=== PATIENT | male | born 1970 | race Caucasian/White ===

== ENCOUNTER 2016-08-18 15:37 | Inpatient (IN) | payer MEDICAID ==
[~2016-08-18] VITALS: Ht 182.9 cm; Wt 145.4 kg
[2016-08-18] MEDS ORDERED: PREG50CA PO (15:47)
[2016-08-18] MEDS ORDERED: LOSA50TA2 PO (15:47)
[2016-08-18] MEDS ORDERED: PRED10TA PO (15:47)
[2016-08-18] MEDS ORDERED: OXYC-229 PO (15:47)
[2016-08-18] MEDS ORDERED: HYDR25CA PO (15:47)
[2016-08-18] MEDS ORDERED: ONDANSETRON 2MG/ML, 2ML IVPush ONE (16:30)
[2016-08-18] MEDS ORDERED: ONDANSETRON 2MG/ML, 2ML ONE (16:43)
[2016-08-18] MEDS ORDERED: MORPHINE SULFATE 4 MG/ML, 1ML ONE ×2 (16:43→17:46)
[2016-08-18] MEDS: MORPHINE SULFATE 4 MG/ML, 1ML IVPush PRN ×3 (16:47→21:04)
[2016-08-18] MEDS ORDERED: SULFAMETH./TRIMETHOPRIM DS 800MG/160MG TABLET PO ONE (17:30)
[2016-08-18] MEDS ORDERED: SULFAMETH./TRIMETHOPRIM DS 800MG/160MG TABLET ONE (17:46)
[2016-08-18] MEDS ORDERED: ACETAMINOPHEN 325 MG TABLET PO PRN (18:00)
[2016-08-18] MEDS ORDERED: POLYETHYLENE GLYCOL 17 GM PACKET PO PRN (18:00)
[2016-08-18] MEDS ORDERED: BISACODYL 10 MG SUPP PR PRN (18:00)
[2016-08-18] MEDS ORDERED: ONDANSETRON 2MG/ML, 2ML IVP PRN (18:00)
[2016-08-18] MEDS ORDERED: ONDANSETRON ODT 4 MG PO PRN (18:00)
[2016-08-18] MEDS ORDERED: ENALAPRILAT 1.25 MG/ML, 2ML IVPush PRN (18:00)
[2016-08-18] MEDS ORDERED: DOCUSATE 100 MG CAPSULE PO PRN (18:00)
[2016-08-18] MEDS ORDERED: PLEASE ENTER ALLERGIES MC SCH ×2 (19:00)
[2016-08-18] MEDS ORDERED: morphine SULFATE 10 MG/ML, 1ML ONE (19:02)
[2016-08-18] MEDS ORDERED: BUPIVACAINE/PF-EPI 0.5% 1:200K ONE (19:02)
[2016-08-18 22:41] VITALS: BP 144/91
[2016-08-18] MEDS: ENOXAPARIN 40 MG/0.4 ML SQ SCH (23:13)
[2016-08-18] MEDS: NICOTINE 21 MG/24 HR PATCH.TD24 TD SCH (23:13)
[2016-08-18 23:15] VITALS: BP 144/91
[2016-08-19] MEDS: MORPHINE SULFATE 4 MG/ML, 1ML IVPush PRN ×5 (00:19→21:03)
[2016-08-19 00:28] VITALS: BP 106/68
[2016-08-19] MEDS: OXYcodone/APAP 10/325MG TABLET PO PRN ×4 (02:54→18:55)
[2016-08-19 05:37] LABS: HEMOGLOBIN 13.3 g/dL (13.7-18.0)
[2016-08-19 05:49] LABS: BLOOD UREA NITROGEN 22 mg/dL (7-18)
[2016-08-19 05:53] LABS: ASPARTATE AMINO TRANSFERASE 11 U/L (15-37)
[2016-08-19 06:08] LABS: HIV 1&2 ANTIBODY SCREEN Nonreactive (Nonreactive); HIV-1 p24 ANTIGEN Nonreactive (Nonreactive)
[2016-08-19 08:04] VITALS: BP 147/87
[2016-08-19] MEDS ORDERED: GADOBUTROL 10 MMOL/10 ML PFS ONE (09:19)
[2016-08-19] MEDS: LOSARTAN 50MG TABLET PO SCH (10:25)
[2016-08-19 10:31] LABS: HEPATITIS C VIRUS ANTIBODY Nonreactive (Nonreactive)
[2016-08-19] MEDS ORDERED: methylPREDNISolone SOD SUCC 125 MG/2 ML IVPush SCH (11:30)
[2016-08-19 12:52] VITALS: BP 114/64
[2016-08-19] MEDS: NICOTINE 21 MG/24 HR PATCH.TD24 TD SCH (17:10)
[2016-08-19] MEDS: ENOXAPARIN 40 MG/0.4 ML SQ SCH (17:11)
[2016-08-19 19:16] VITALS: BP 153/86
[2016-08-19 20:23] LABS: DAU SCREEN DISCLAIMER
[2016-08-20 01:02] VITALS: BP 142/73
[2016-08-20] MEDS: OXYcodone/APAP 10/325MG TABLET PO PRN ×4 (02:48→23:23)
[2016-08-20] MEDS: MORPHINE SULFATE 4 MG/ML, 1ML IVPush PRN ×4 (03:45→19:48)
[2016-08-20 05:51] LABS: BLOOD UREA NITROGEN 16 mg/dL (7-18)
[2016-08-20 06:50] VITALS: BP 162/84
[2016-08-20] MEDS: LOSARTAN 50MG TABLET PO SCH (09:06)
[2016-08-20] MEDS: OXYcodone IR 5MG TABLET PO PRN ×2 (11:39→18:19)
[2016-08-20] MEDS: ENOXAPARIN 40 MG/0.4 ML SQ SCH (12:36)
[2016-08-20 13:51] VITALS: BP 148/82
[2016-08-20] MEDS: FUROSEMIDE 20 MG TABLET PO SCH (14:27)
[2016-08-20] MEDS: ERGOCALCIFEROL 50,000 UNIT CAPSULE PO SCH (14:27)
[2016-08-20] MEDS: NICOTINE 21 MG/24 HR PATCH.TD24 TD SCH (17:36)
[2016-08-20 19:15] VITALS: BP 155/79
[2016-08-21] MEDS: MORPHINE SULFATE 4 MG/ML, 1ML IVPush PRN ×5 (00:01→18:38)
[2016-08-21] MEDS: OXYcodone IR 5MG TABLET PO PRN ×3 (00:01→16:02)
[2016-08-21 02:28] VITALS: BP 144/88
[2016-08-21 06:08] LABS: HEMOGLOBIN 14.4 g/dL (13.7-18.0)
[2016-08-21 06:18] LABS: BLOOD UREA NITROGEN 23 mg/dL (7-18)
[2016-08-21 06:21] LABS: DIFF TOTAL CELLS COUNTED 100 CELL DIFF
[2016-08-21 06:22] LABS: VERIFY COUNTS? YES
[2016-08-21 06:56] VITALS: BP 135/83
[2016-08-21] MEDS: FUROSEMIDE 20 MG TABLET PO SCH (08:24)
[2016-08-21] MEDS: LOSARTAN 50MG TABLET PO SCH (08:25)
[2016-08-21] MEDS: OXYcodone/APAP 10/325MG TABLET PO PRN ×2 (11:05→20:50)
[2016-08-21] MEDS ORDERED: MIDAZOLAM 1 MG/ML, 5ML ONE (13:19)
[2016-08-21] MEDS ORDERED: FENTANYL PF 100 MCG/2ML ONE (13:19)
[2016-08-21] MEDS ORDERED: FLUMAZENIL 0.1 MG/1 ML, 5ML ONE (13:19)
[2016-08-21] MEDS ORDERED: NALOXONE 1 MG/ML, 2ML ONE (13:19)
[2016-08-21 14:30] VITALS: BP 133/81
[2016-08-21] MEDS: NICOTINE 21 MG/24 HR PATCH.TD24 TD SCH (18:00)
[2016-08-21] MEDS: ENOXAPARIN 40 MG/0.4 ML SQ SCH (18:00)
[2016-08-21 20:08] VITALS: BP 135/78
[2016-08-22] MEDS: MORPHINE SULFATE 4 MG/ML, 1ML IVPush PRN ×4 (00:14→10:47)
[2016-08-22 02:20] VITALS: BP 148/88
[2016-08-22] MEDS: OXYcodone/APAP 10/325MG TABLET PO PRN ×2 (02:39→09:35)
[2016-08-22] MEDS: OXYcodone IR 5MG TABLET PO PRN ×3 (03:42→20:10)
[2016-08-22 07:43] VITALS: BP 145/90
[2016-08-22] MEDS: LOSARTAN 50MG TABLET PO SCH (09:35)
[2016-08-22] MEDS: FUROSEMIDE 20 MG TABLET PO SCH (09:35)
[2016-08-22 11:06] LABS: COMPLEMENT C3 183 mg/dL (82-167); COMPLEMENT C4 34 mg/dL (14-44); COMPLEMENT TOTAL (CH50) >60 U/mL (42-60)
[2016-08-22 13:06] LABS: A/G RATIO 0.9 (0.7-1.7); ALBUMIN 2.6 g/dL (2.9-4.4); ALPHA-1-GLOBULIN 0.2 g/dL (0.0-0.4); GAMMA GLOBULIN 0.7 g/dL (0.4-1.8); PROTEIN TOTAL 5.5 g/dL (6.0-8.5)
[2016-08-22 13:06] LABS: BETA-2 GLYCOPROTEIN I IGA <9 (0-25)
[2016-08-22 13:24] VITALS: BP 149/93
[2016-08-22] MEDS: GABAPENTIN 300 MG CAPSULE PO SCH (13:31)
[2016-08-22] MEDS ORDERED: MORPHINE SULFATE 4 MG/ML, 1ML ONE (13:53)
[2016-08-22] MEDS: morphine SULFATE 10 MG/ML, 1ML IVPush PRN ×3 (13:56→22:04)
[2016-08-22 14:07] LABS: PROTEINASE 3 (PR-3) AB <3.5 U/mL (0.0-3.5)
[2016-08-22 14:07] LABS: UR ALBUMIN 70.2 % (.); UR ALPHA-1-GLOBULIN 9.1 % (.); UR ALPHA-2-GLOBULIN 4.9 % (.); UR BETA GLOBULIN 9.9 % (.); UR GAMMA GLOBULIN 5.9 % (.); UR M-SPIKE % Not Observed % (Not Observed)
[2016-08-22] MEDS ORDERED: OXYcodone IR 5MG TABLET ONE (15:36)
[2016-08-22] MEDS ORDERED: OXYcodone IR 5MG TABLET PO PRN (17:00)
[2016-08-22] MEDS: NICOTINE 21 MG/24 HR PATCH.TD24 TD SCH (17:34)
[2016-08-22] MEDS: ENOXAPARIN 40 MG/0.4 ML SQ SCH (17:34)
[2016-08-22 18:20] LABS: ANA SCREEN NEGATIVE (Negative)
[2016-08-22 21:21] VITALS: BP 149/89
[2016-08-23] MEDS: OXYcodone IR 5MG TABLET PO PRN ×6 (00:14→21:35)
[2016-08-23 01:47] VITALS: BP 152/92
[2016-08-23] MEDS: morphine SULFATE 10 MG/ML, 1ML IVPush PRN ×6 (02:12→23:37)
[2016-08-23 06:32] LABS: HEMOGLOBIN 14.3 g/dL (13.7-18.0)
[2016-08-23 06:47] LABS: BLOOD UREA NITROGEN 22 mg/dL (7-18)
[2016-08-23 07:16] VITALS: BP 152/96
[2016-08-23] MEDS: GABAPENTIN 300 MG CAPSULE PO SCH (09:03)
[2016-08-23] MEDS: LOSARTAN 50MG TABLET PO SCH ×2 (09:04→17:36)
[2016-08-23 09:07] LABS: ANA DIRECT Negative (Negative); COMPLEMENT C3 222 mg/dL (82-167); COMPLEMENT C4 38 mg/dL (14-44); INTERMYOFIBRILLAR AB Negative (Neg:<1:20); MITOCHONDRIAL (M2) AB 52.6 Units (0.0-20.0); PARIETAL CELL AB 2.1 Units (0.0-20.0); RA LATEX TURBIDITY 11.6 IU/mL (0.0-13.9); SARCOLEMMA AB Negative (Neg:<1:20); SJOGREN'S SS-A AB <0.2 AI (0.0-0.9); STRIATION AB Negative (Neg:<1:40); THYROID PEROXIDASE (TPO) AB 15 IU/mL (0-34)
[2016-08-23] MEDS: FUROSEMIDE 20 MG TABLET PO SCH (09:09)
[2016-08-23] MEDS: FUROSEMIDE 20 MG/2 ML IV SCH (13:00)
[2016-08-23 13:22] VITALS: BP 153/79
[2016-08-23] MEDS: NICOTINE 21 MG/24 HR PATCH.TD24 TD SCH (17:37)
[2016-08-23] MEDS: ENOXAPARIN 40 MG/0.4 ML SQ SCH (17:37)
[2016-08-23 19:54] VITALS: BP 136/78
[2016-08-24 01:19] VITALS: BP 161/101
[2016-08-24] MEDS: OXYcodone IR 5MG TABLET PO PRN ×6 (01:29→22:06)
[2016-08-24] MEDS: morphine SULFATE 10 MG/ML, 1ML IVPush PRN ×7 (03:39→23:31)
[2016-08-24] MEDS: GABAPENTIN 300 MG CAPSULE PO SCH (07:38)
[2016-08-24] MEDS: FUROSEMIDE 20 MG/2 ML IV SCH (07:38)
[2016-08-24] MEDS: LOSARTAN 50MG TABLET PO SCH ×2 (07:38→17:46)
[2016-08-24 08:35] VITALS: BP 153/75
[2016-08-24 13:30] VITALS: BP 122/74
[2016-08-24] MEDS: ENOXAPARIN 40 MG/0.4 ML SQ SCH (17:46)
[2016-08-24] MEDS: NICOTINE 21 MG/24 HR PATCH.TD24 TD SCH (17:46)
[2016-08-24 20:55] VITALS: BP 143/90
[2016-08-25] MEDS: OXYcodone IR 5MG TABLET PO PRN ×6 (02:07→22:01)
[2016-08-25 02:41] VITALS: BP 165/107
[2016-08-25] MEDS: morphine SULFATE 10 MG/ML, 1ML IVPush PRN ×3 (03:31→12:05)
[2016-08-25 06:39] LABS: HEMOGLOBIN 15.4 g/dL (13.7-18.0)
[2016-08-25 06:48] LABS: BLOOD UREA NITROGEN 23 mg/dL (7-18)
[2016-08-25 06:57] VITALS: BP 125/71
[2016-08-25] MEDS: FUROSEMIDE 20 MG/2 ML IV SCH (08:11)
[2016-08-25] MEDS: LOSARTAN 50MG TABLET PO SCH ×2 (08:11→18:34)
[2016-08-25] MEDS: GABAPENTIN 300 MG CAPSULE PO SCH (08:11)
[2016-08-25 08:42] LABS: DIFF TOTAL CELLS COUNTED 100 CELL DIFF
[2016-08-25 08:45] LABS: VERIFY COUNTS? YES
[2016-08-25 13:12] VITALS: BP 148/88
[2016-08-25] MEDS: OxyconTIN ER 10 MG TAB.ER PO SCH (13:34)
[2016-08-25] MEDS: NICOTINE 21 MG/24 HR PATCH.TD24 TD SCH (18:00)
[2016-08-25] MEDS: ENOXAPARIN 40 MG/0.4 ML SQ SCH (18:34)
[2016-08-25 19:50] VITALS: BP 132/84
[2016-08-26] MEDS: OxyconTIN ER 10 MG TAB.ER PO SCH ×2 (01:09→13:18)
[2016-08-26] MEDS: OXYcodone IR 5MG TABLET PO PRN ×6 (01:46→21:23)
[2016-08-26 04:35] VITALS: BP 127/75
[2016-08-26 08:19] VITALS: BP 143/82
[2016-08-26] MEDS: FUROSEMIDE 20 MG/2 ML IV SCH (09:00)
[2016-08-26] MEDS: LOSARTAN 50MG TABLET PO SCH ×2 (09:13→17:23)
[2016-08-26] MEDS: GABAPENTIN 300 MG CAPSULE PO SCH (09:14)
[2016-08-26] MEDS: FUROSEMIDE 40 MG TABLET PO SCH (10:09)
[2016-08-26 12:55] VITALS: BP 138/85
[2016-08-26] MEDS: ENOXAPARIN 40 MG/0.4 ML SQ SCH (17:23)
[2016-08-26] MEDS: NICOTINE 21 MG/24 HR PATCH.TD24 TD SCH (17:25)
[2016-08-26 18:46] VITALS: BP 127/79
[2016-08-27] MEDS: OxyconTIN ER 10 MG TAB.ER PO SCH ×2 (01:21→12:55)
[2016-08-27] MEDS: OXYcodone IR 5MG TABLET PO PRN ×6 (01:21→22:14)
[2016-08-27 05:22] LABS: HEMOGLOBIN 15.7 g/dL (13.7-18.0)
[2016-08-27 05:23] VITALS: BP 135/81
[2016-08-27 05:31] LABS: ASPARTATE AMINO TRANSFERASE 19 U/L (15-37); BLOOD UREA NITROGEN 27 mg/dL (7-18); TOTAL IRON BINDING CAPACITY 291 mcg/dL (250-450)
[2016-08-27 05:56] LABS: DIFF TOTAL CELLS COUNTED 100 CELL DIFF
[2016-08-27 06:03] LABS: VERIFY COUNTS? YES
[2016-08-27 07:19] VITALS: BP 131/83
[2016-08-27] MEDS: LOSARTAN 50MG TABLET PO SCH ×2 (08:28→17:13)
[2016-08-27] MEDS: GABAPENTIN 300 MG CAPSULE PO SCH (08:28)
[2016-08-27] MEDS: FUROSEMIDE 40 MG TABLET PO SCH (08:28)
[2016-08-27] MEDS: ERGOCALCIFEROL 50,000 UNIT CAPSULE PO SCH (11:16)
[2016-08-27 14:09] VITALS: BP 115/72
[2016-08-27] MEDS: NICOTINE 21 MG/24 HR PATCH.TD24 TD SCH (17:13)
[2016-08-27] MEDS: ENOXAPARIN 40 MG/0.4 ML SQ SCH (17:18)
[2016-08-27 20:17] VITALS: BP 153/85
[2016-08-28] MEDS: OxyconTIN ER 10 MG TAB.ER PO SCH ×2 (00:50→13:04)
[2016-08-28] MEDS: OXYcodone IR 5MG TABLET PO PRN ×6 (02:02→23:25)
[2016-08-28 03:11] VITALS: BP 137/79
[2016-08-28 06:15] LABS: HEMOGLOBIN 15.5 g/dL (13.7-18.0)
[2016-08-28 06:57] LABS: ASPARTATE AMINO TRANSFERASE 14 U/L (15-37); BLOOD UREA NITROGEN 26 mg/dL (7-18)
[2016-08-28 07:00] LABS: DIFF TOTAL CELLS COUNTED 100 CELL DIFF
[2016-08-28 07:02] LABS: ANISOCYTOSIS 1+; VERIFY COUNTS? YES
[2016-08-28 08:33] VITALS: BP 144/87
[2016-08-28] MEDS: FUROSEMIDE 40 MG TABLET PO SCH ×2 (09:01→21:14)
[2016-08-28] MEDS: LOSARTAN 50MG TABLET PO SCH ×2 (09:01→17:57)
[2016-08-28] MEDS: GABAPENTIN 300 MG CAPSULE PO SCH (09:01)
[2016-08-28 13:31] VITALS: BP 135/72
[2016-08-28] MEDS: ENOXAPARIN 40 MG/0.4 ML SQ SCH (17:57)
[2016-08-28] MEDS: NICOTINE 21 MG/24 HR PATCH.TD24 TD SCH (17:58)
[2016-08-28 19:53] VITALS: BP 132/78
[2016-08-29] MEDS: OxyconTIN ER 10 MG TAB.ER PO SCH ×2 (00:53→12:54)
[2016-08-29 02:13] VITALS: BP 132/84
[2016-08-29] MEDS: OXYcodone IR 5MG TABLET PO PRN ×6 (03:13→23:32)
[2016-08-29 05:11] LABS: HEMOGLOBIN 14.8 g/dL (13.7-18.0)
[2016-08-29 05:29] LABS: BLOOD UREA NITROGEN 27 mg/dL (7-18)
[2016-08-29 05:45] LABS: DIFF TOTAL CELLS COUNTED 100 CELL DIFF
[2016-08-29 05:51] LABS: VERIFY COUNTS? YES
[2016-08-29 05:52] LABS: MONOS WITH VACUOLES 1+
[2016-08-29 08:05] VITALS: BP 128/84
[2016-08-29] MEDS: GABAPENTIN 300 MG CAPSULE PO SCH (09:57)
[2016-08-29] MEDS: FUROSEMIDE 40 MG TABLET PO SCH ×2 (09:58→19:59)
[2016-08-29] MEDS: LOSARTAN 50MG TABLET PO SCH ×2 (09:58→17:51)
[2016-08-29 14:02] VITALS: BP 131/80
[2016-08-29] MEDS: NICOTINE 21 MG/24 HR PATCH.TD24 TD SCH (17:49)
[2016-08-29] MEDS: ENOXAPARIN 40 MG/0.4 ML SQ SCH (17:52)
[2016-08-29 20:06] VITALS: BP 142/73
[2016-08-30] MEDS: OxyconTIN ER 10 MG TAB.ER PO SCH ×2 (01:04→12:47)
[2016-08-30] MEDS: OXYcodone IR 5MG TABLET PO PRN ×5 (03:47→20:00)
[2016-08-30 04:00] VITALS: BP 148/78
[2016-08-30 05:24] LABS: HEMOGLOBIN 14.4 g/dL (13.7-18.0)
[2016-08-30 05:34] LABS: BLOOD UREA NITROGEN 25 mg/dL (7-18)
[2016-08-30 06:13] LABS: DIFF TOTAL CELLS COUNTED 100 CELL DIFF
[2016-08-30 06:14] LABS: VERIFY COUNTS? YES
[2016-08-30] MEDS: GABAPENTIN 300 MG CAPSULE PO SCH (07:48)
[2016-08-30] MEDS: LOSARTAN 50MG TABLET PO SCH ×2 (07:49→17:50)
[2016-08-30] MEDS: FUROSEMIDE 40 MG TABLET PO SCH ×2 (07:49→20:01)
[2016-08-30 07:53] VITALS: BP 123/81
[2016-08-30] MEDS ORDERED: GABAPENTIN 300 MG CAPSULE PO SCH (09:00)
[2016-08-30] MEDS: GABAPENTIN 100 MG CAPSULE PO SCH ×3 (10:00→20:00)
[2016-08-30 13:41] VITALS: BP 112/72
[2016-08-30] MEDS: NICOTINE 21 MG/24 HR PATCH.TD24 TD SCH (16:55)
[2016-08-30 17:49] VITALS: BP 138/73
[2016-08-30] MEDS: ENOXAPARIN 40 MG/0.4 ML SQ SCH (17:50)
[2016-08-30 20:42] VITALS: BP 129/69
[2016-08-31] MEDS: OXYcodone IR 5MG TABLET PO PRN ×6 (00:05→21:15)
[2016-08-31] MEDS: OxyconTIN ER 10 MG TAB.ER PO SCH ×2 (00:56→13:06)
[2016-08-31 02:05] VITALS: BP 126/64
[2016-08-31 07:26] LABS: HEMOGLOBIN 13.6 g/dL (13.7-18.0)
[2016-08-31 07:38] LABS: BLOOD UREA NITROGEN 24 mg/dL (7-18)
[2016-08-31 08:02] LABS: DIFF TOTAL CELLS COUNTED 100 CELL DIFF
[2016-08-31 08:08] LABS: VERIFY COUNTS? YES
[2016-08-31 09:14] VITALS: BP 134/72
[2016-08-31] MEDS: LOSARTAN 50MG TABLET PO SCH ×2 (09:21→17:17)
[2016-08-31] MEDS: FUROSEMIDE 40 MG TABLET PO SCH ×2 (09:21→20:22)
[2016-08-31] MEDS: GABAPENTIN 100 MG CAPSULE PO SCH (09:21)
[2016-08-31 15:50] VITALS: BP 120/66
[2016-08-31] MEDS: NICOTINE 21 MG/24 HR PATCH.TD24 TD SCH (17:16)
[2016-08-31] MEDS: ENOXAPARIN 40 MG/0.4 ML SQ SCH (17:17)
[2016-08-31 18:57] VITALS: BP 121/70
[2016-09-01] MEDS: OxyconTIN ER 10 MG TAB.ER PO SCH ×2 (00:10→13:00)
[2016-09-01] MEDS: OXYcodone IR 5MG TABLET PO PRN ×6 (01:16→21:32)
[2016-09-01 01:20] VITALS: BP 138/79
[2016-09-01 05:21] LABS: HEMOGLOBIN 13.7 g/dL (13.7-18.0)
[2016-09-01 05:31] LABS: BLOOD UREA NITROGEN 26 mg/dL (7-18)
[2016-09-01 06:15] LABS: DIFF TOTAL CELLS COUNTED 100 CELL DIFF
[2016-09-01 06:16] LABS: VERIFY COUNTS? YES
[2016-09-01 07:15] VITALS: BP 123/78
[2016-09-01] MEDS: FUROSEMIDE 40 MG TABLET PO SCH ×2 (09:42→21:32)
[2016-09-01] MEDS: LOSARTAN 50MG TABLET PO SCH ×2 (09:43→17:38)
[2016-09-01 15:23] VITALS: BP 111/69
[2016-09-01] MEDS: NICOTINE 21 MG/24 HR PATCH.TD24 TD SCH (17:38)
[2016-09-01] MEDS: ENOXAPARIN 40 MG/0.4 ML SQ SCH (17:54)
[2016-09-01 18:51] VITALS: BP 144/84
[2016-09-02] MEDS: OxyconTIN ER 10 MG TAB.ER PO SCH ×2 (00:46→13:14)
[2016-09-02] MEDS: OXYcodone IR 5MG TABLET PO PRN ×6 (02:30→23:22)
[2016-09-02 02:45] VITALS: BP 121/65
[2016-09-02 06:19] LABS: HEMOGLOBIN 13.8 g/dL (13.7-18.0)
[2016-09-02 06:34] LABS: BLOOD UREA NITROGEN 25 mg/dL (7-18)
[2016-09-02 07:26] VITALS: BP 119/75
[2016-09-02] MEDS: LOSARTAN 50MG TABLET PO SCH ×2 (08:23→18:33)
[2016-09-02] MEDS: FUROSEMIDE 40 MG TABLET PO SCH ×2 (08:24→20:52)
[2016-09-02 09:10] LABS: DIFF TOTAL CELLS COUNTED 100 CELL DIFF
[2016-09-02 09:11] LABS: VERIFY COUNTS? YES
[2016-09-02 13:57] VITALS: BP 153/92
[2016-09-02] MEDS: NICOTINE 21 MG/24 HR PATCH.TD24 TD SCH (18:27)
[2016-09-02] MEDS: ENOXAPARIN 40 MG/0.4 ML SQ SCH (18:31)
[2016-09-02 18:34] VITALS: BP 155/90
[2016-09-03] MEDS: OxyconTIN ER 10 MG TAB.ER PO SCH ×2 (01:09→13:07)
[2016-09-03 01:55] VITALS: BP 162/84
[2016-09-03] MEDS: OXYcodone IR 5MG TABLET PO PRN ×5 (03:26→20:09)
[2016-09-03 07:37] VITALS: BP 130/87
[2016-09-03] MEDS: LOSARTAN 50MG TABLET PO SCH ×2 (07:40→17:33)
[2016-09-03] MEDS: ERGOCALCIFEROL 50,000 UNIT CAPSULE PO SCH (07:40)
[2016-09-03] MEDS: FUROSEMIDE 40 MG TABLET PO SCH ×2 (07:41→20:35)
[2016-09-03 13:14] VITALS: BP 136/79
[2016-09-03] MEDS: NICOTINE 21 MG/24 HR PATCH.TD24 TD SCH ×2 (17:33→17:34)
[2016-09-03] MEDS: ENOXAPARIN 40 MG/0.4 ML SQ SCH (17:34)
[2016-09-03 20:00] VITALS: BP 125/74
[2016-09-04] MEDS: OXYcodone IR 5MG TABLET PO PRN ×6 (00:08→21:26)
[2016-09-04] MEDS: OxyconTIN ER 10 MG TAB.ER PO SCH ×2 (01:24→13:19)
[2016-09-04 02:48] VITALS: BP 120/81
[2016-09-04 07:22] VITALS: BP 132/79
[2016-09-04] MEDS: FUROSEMIDE 40 MG TABLET PO SCH ×2 (09:01→21:27)
[2016-09-04] MEDS: LOSARTAN 50MG TABLET PO SCH ×2 (09:02→17:09)
[2016-09-04 12:58] VITALS: BP 115/77
[2016-09-04 17:10] VITALS: BP 119/61
[2016-09-04] MEDS: NICOTINE 21 MG/24 HR PATCH.TD24 TD SCH (17:10)
[2016-09-04] MEDS: ENOXAPARIN 40 MG/0.4 ML SQ SCH (17:12)
[2016-09-04 19:37] VITALS: BP 115/68
[2016-09-05] MEDS: OxyconTIN ER 10 MG TAB.ER PO SCH ×2 (00:44→13:21)
[2016-09-05 00:47] VITALS: BP 108/68
[2016-09-05] MEDS: OXYcodone IR 5MG TABLET PO PRN ×6 (01:28→23:37)
[2016-09-05 07:42] VITALS: BP 122/80
[2016-09-05] MEDS: LOSARTAN 50MG TABLET PO SCH ×2 (08:49→18:15)
[2016-09-05] MEDS: FUROSEMIDE 40 MG TABLET PO SCH ×2 (08:50→19:40)
[2016-09-05 14:28] VITALS: BP 144/85
[2016-09-05] MEDS: NICOTINE 21 MG/24 HR PATCH.TD24 TD SCH (18:05)
[2016-09-05] MEDS: ENOXAPARIN 40 MG/0.4 ML SQ SCH (18:15)
[2016-09-05 20:40] VITALS: BP 120/69
[2016-09-06 01:17] VITALS: BP 129/82
[2016-09-06] MEDS: OxyconTIN ER 10 MG TAB.ER PO SCH ×2 (01:19→13:04)
[2016-09-06] MEDS: OXYcodone IR 5MG TABLET PO PRN ×5 (05:33→23:16)
[2016-09-06 05:40] VITALS: BP 118/76
[2016-09-06 07:49] VITALS: BP 125/76
[2016-09-06] MEDS: FUROSEMIDE 40 MG TABLET PO SCH ×2 (08:18→21:00)
[2016-09-06] MEDS: LOSARTAN 50MG TABLET PO SCH ×2 (08:19→18:30)
[2016-09-06 12:37] VITALS: BP 126/81
[2016-09-06] MEDS: NICOTINE 21 MG/24 HR PATCH.TD24 TD SCH (18:14)
[2016-09-06] MEDS: ENOXAPARIN 40 MG/0.4 ML SQ SCH (18:30)
[2016-09-06 19:51] VITALS: BP 127/71
[2016-09-07] MEDS: OxyconTIN ER 10 MG TAB.ER PO SCH ×2 (00:57→12:44)
[2016-09-07 03:54] VITALS: BP 99/59
[2016-09-07] MEDS: OXYcodone IR 5MG TABLET PO PRN ×5 (06:07→22:32)
[2016-09-07 06:32] VITALS: BP 124/75
[2016-09-07] MEDS: FUROSEMIDE 40 MG TABLET PO SCH ×2 (07:25→20:26)
[2016-09-07] MEDS: LOSARTAN 50MG TABLET PO SCH ×2 (07:25→18:37)
[2016-09-07] MEDS ORDERED: CALCIUM CARBONATE 500 MG TAB.CHEW PO PRN (12:30)
[2016-09-07 14:00] VITALS: BP 120/69
[2016-09-07] MEDS: BACITRACIN OINT 500U/GM, 15 GM TP SCH ×2 (17:26→20:26)
[2016-09-07] MEDS: ENOXAPARIN 40 MG/0.4 ML SQ SCH (17:26)
[2016-09-07] MEDS ORDERED: GENTAMICIN PER PHARMACY MC PRN (18:00)
[2016-09-07] MEDS: NICOTINE 21 MG/24 HR PATCH.TD24 TD SCH (18:32)
[2016-09-07] MEDS: PIPERACILLIN/TAZO/PMX 4.5GM 100 ML IV SCH (18:37)
[2016-09-07 19:03] VITALS: BP 118/78
[2016-09-08] MEDS: PIPERACILLIN/TAZO/PMX 4.5GM 100 ML IV SCH ×4 (00:51→18:04)
[2016-09-08] MEDS: OxyconTIN ER 10 MG TAB.ER PO SCH ×2 (00:51→13:05)
[2016-09-08 03:10] VITALS: BP 98/63
[2016-09-08] MEDS: OXYcodone IR 5MG TABLET PO PRN ×5 (03:42→20:05)
[2016-09-08 07:07] VITALS: BP 102/67
[2016-09-08] MEDS: LOSARTAN 50MG TABLET PO SCH ×2 (08:08→17:32)
[2016-09-08] MEDS: FUROSEMIDE 40 MG TABLET PO SCH ×2 (08:08→20:05)
[2016-09-08] MEDS: BACITRACIN OINT 500U/GM, 15 GM TP SCH ×3 (08:08→21:53)
[2016-09-08 13:30] VITALS: BP 134/75
[2016-09-08] MEDS: ENOXAPARIN 40 MG/0.4 ML SQ SCH (17:32)
[2016-09-08] MEDS: NICOTINE 21 MG/24 HR PATCH.TD24 TD SCH (17:32)
[2016-09-08 19:17] VITALS: BP 118/72
[2016-09-09] MEDS: OXYcodone IR 5MG TABLET PO PRN ×6 (00:05→21:05)
[2016-09-09] MEDS: PIPERACILLIN/TAZO/PMX 4.5GM 100 ML IV SCH ×4 (01:00→18:34)
[2016-09-09] MEDS: OxyconTIN ER 10 MG TAB.ER PO SCH ×2 (01:00→13:00)
[2016-09-09 02:54] VITALS: BP 111/71
[2016-09-09 05:25] LABS: HEMOGLOBIN 13.2 g/dL (13.7-18.0)
[2016-09-09 05:37] LABS: BLOOD UREA NITROGEN 27 mg/dL (7-18)
[2016-09-09 06:50] VITALS: BP 110/70
[2016-09-09] MEDS: LOSARTAN 50MG TABLET PO SCH ×2 (08:27→17:48)
[2016-09-09] MEDS: BACITRACIN OINT 500U/GM, 15 GM TP SCH ×3 (08:27→21:06)
[2016-09-09] MEDS: FUROSEMIDE 40 MG TABLET PO SCH ×2 (08:27→21:04)
[2016-09-09 12:30] VITALS: BP 121/73
[2016-09-09] MEDS: NICOTINE 21 MG/24 HR PATCH.TD24 TD SCH (17:03)
[2016-09-09] MEDS: ENOXAPARIN 40 MG/0.4 ML SQ SCH (17:47)
[2016-09-09 17:49] VITALS: BP 122/78
[2016-09-10] MEDS: OxyconTIN ER 10 MG TAB.ER PO SCH ×2 (00:56→13:07)
[2016-09-10] MEDS: OXYcodone IR 5MG TABLET PO PRN ×6 (00:57→22:08)
[2016-09-10] MEDS: PIPERACILLIN/TAZO/PMX 4.5GM 100 ML IV SCH ×4 (00:59→18:01)
[2016-09-10 01:18] VITALS: BP 126/81
[2016-09-10 07:42] LABS: HEMOGLOBIN 13.6 g/dL (13.7-18.0)
[2016-09-10 07:53] LABS: BLOOD UREA NITROGEN 24 mg/dL (7-18)
[2016-09-10 08:28] VITALS: BP 138/90
[2016-09-10] MEDS ORDERED: POTASSIUM CHLORIDE 20 MEQ TAB.ER.PRT PO ONE (08:30)
[2016-09-10] MEDS: BACITRACIN OINT 500U/GM, 15 GM TP SCH ×3 (09:00→23:34)
[2016-09-10] MEDS: LOSARTAN 50MG TABLET PO SCH ×2 (09:55→18:00)
[2016-09-10] MEDS: FUROSEMIDE 40 MG TABLET PO SCH ×2 (09:56→22:08)
[2016-09-10] MEDS: ERGOCALCIFEROL 50,000 UNIT CAPSULE PO SCH (10:52)
[2016-09-10 13:18] VITALS: BP 103/68
[2016-09-10 13:32] VITALS: BP 122/48
[2016-09-10] MEDS: NICOTINE 21 MG/24 HR PATCH.TD24 TD SCH (16:04)
[2016-09-10 17:59] VITALS: BP 149/91
[2016-09-10] MEDS: ENOXAPARIN 40 MG/0.4 ML SQ SCH (18:00)
[2016-09-11] MEDS: PIPERACILLIN/TAZO/PMX 4.5GM 100 ML IV SCH ×4 (00:46→17:39)
[2016-09-11] MEDS: OxyconTIN ER 10 MG TAB.ER PO SCH ×2 (01:05→12:26)
[2016-09-11] MEDS: OXYcodone IR 5MG TABLET PO PRN ×6 (02:29→23:18)
[2016-09-11 02:44] VITALS: BP 109/55
[2016-09-11 05:29] LABS: BLOOD UREA NITROGEN 25 mg/dL (7-18)
[2016-09-11] MEDS ORDERED: POTASSIUM CHLORIDE 20 MEQ TAB.ER.PRT PO ONE (08:00)
[2016-09-11 08:13] VITALS: BP 126/72
[2016-09-11] MEDS: FUROSEMIDE 40 MG TABLET PO SCH ×2 (08:30→23:25)
[2016-09-11] MEDS: LOSARTAN 50MG TABLET PO SCH ×2 (08:31→17:39)
[2016-09-11] MEDS: BACITRACIN OINT 500U/GM, 15 GM TP SCH ×2 (10:45→17:36)
[2016-09-11 15:24] VITALS: BP 117/75
[2016-09-11] MEDS: ENOXAPARIN 40 MG/0.4 ML SQ SCH (17:39)
[2016-09-11] MEDS: NICOTINE 21 MG/24 HR PATCH.TD24 TD SCH (17:39)
[2016-09-11 20:32] VITALS: BP 109/57
[2016-09-12] MEDS: BACITRACIN OINT 500U/GM, 15 GM TP SCH ×2 (00:03→07:53)
[2016-09-12] MEDS: PIPERACILLIN/TAZO/PMX 4.5GM 100 ML IV SCH ×2 (00:45→06:40)
[2016-09-12] MEDS: OxyconTIN ER 10 MG TAB.ER PO SCH (00:45)
[2016-09-12] MEDS: OXYcodone IR 5MG TABLET PO PRN ×3 (04:14→11:28)
[2016-09-12 04:32] VITALS: BP 115/69
[2016-09-12 06:30] LABS: BLOOD UREA NITROGEN 25 mg/dL (7-18)
[2016-09-12 07:48] VITALS: BP 104/62
[2016-09-12] MEDS: LOSARTAN 50MG TABLET PO SCH (07:54)
[2016-09-12] MEDS: FUROSEMIDE 40 MG TABLET PO SCH (07:54)
[2016-09-12] MEDS ORDERED: NICO1PAT5 TD (07:57)
[2016-09-12] MEDS ORDERED: PRED20TA PO (07:57)
[2016-09-12] MEDS ORDERED: POTA25TA4 PO (07:57)
[2016-09-12] MEDS ORDERED: ERGO500017 PO (07:57)
[2016-09-12] MEDS ORDERED: BACI120O TP (07:57)
[2016-09-12] MEDS ORDERED: FURO40TA6 PO (07:57)
[2016-09-12] MEDS ORDERED: POLY17PO5 PO (08:01)
[2016-09-12] MEDS ORDERED: CIPR500T3 PO (08:01)
[2016-09-12] MEDS ORDERED: SULF1TAB24 PO ×2 (08:01→11:00)
[2016-09-12] MEDS ORDERED: LACT1CAP24 PO (08:03)
[2016-09-12] MEDS ORDERED: SULFAMETH./TRIMETHOPRIM DS 800MG/160MG TABLET PO SCH (09:00)
[2016-09-12] MEDS ORDERED: CIPROFLOXACIN 500 MG TABLET PO SCH (09:00)
== END 2016-09-12 11:30 | disposition home or self-care (01) | DRG 813 ==
LOC: ED 16:33 → EDIP 18:09 → 4NOR 20:30
PROVIDERS: ADMIT Internal Medicine; ATTEND Internal Medicine
PROC: 0T9B70Z Drainage of Bladder with Drainage Device, Via Natural or Artificial Opening (ICD-10-PCS; 2016-08-18)
PROC: 0HBLXZX Excision of Left Lower Leg Skin, External Approach, Diagnostic (ICD-10-PCS; principal; 2016-08-18 19:15)
PROC: 0TB13ZX Excision of Left Kidney, Percutaneous Approach, Diagnostic (ICD-10-PCS; 2016-08-21)
DX: D69.0 Allergic purpura (principal); E87.1 Hypo-osmolality and hyponatremia; L03.115 Cellulitis of right lower limb; L03.116 Cellulitis of left lower limb; L97.829 Non-pressure chronic ulcer of other part of left lower leg with unspecified severity; L97.519 Non-pressure chronic ulcer of other part of right foot with unspecified severity; D64.9 Anemia, unspecified; E55.9 Vitamin D deficiency, unspecified; E11.40 Type 2 diabetes mellitus with diabetic neuropathy, unspecified; E11.22 Type 2 diabetes mellitus with diabetic chronic kidney disease; I12.9 Hypertensive chronic kidney disease with stage 1 through stage 4 chronic kidney disease, or unspecified chronic kidney disease; T38.0X5A Adverse effect of glucocorticoids and synthetic analogues, initial encounter; S92.331A Displaced fracture of third metatarsal bone, right foot, initial encounter for closed fracture; S92.321A Displaced fracture of second metatarsal bone, right foot, initial encounter for closed fracture; E88.09 Other disorders of plasma-protein metabolism, not elsewhere classified; E87.70 Fluid overload, unspecified; E66.9 Obesity, unspecified; F10.10 Alcohol abuse, uncomplicated; F17.210 Nicotine dependence, cigarettes, uncomplicated; F41.9 Anxiety disorder, unspecified; E87.6 Hypokalemia; E66.01 Morbid (severe) obesity due to excess calories; F12.90 Cannabis use, unspecified, uncomplicated; N18.1 Chronic kidney disease, stage 1; X58.XXXA Exposure to other specified factors, initial encounter; Z87.01 Personal history of pneumonia (recurrent); Z89.411 Acquired absence of right great toe; Z47.1 Aftercare following joint replacement surgery; Z88.1 Allergy status to other antibiotic agents; Z89.429 Acquired absence of other toe(s), unspecified side; Z91.19 Patient's noncompliance with other medical treatment and regimen; Z79.899 Other long term (current) drug therapy; Z71.6 Tobacco abuse counseling; Y93.89 Activity, other specified; Y92.89 Other specified places as the place of occurrence of the external cause; Y99.8 Other external cause status
CPT/HCPCS: 36415; 50200; 71020; 76770; 77012; 80048; 80053; 80069; 80074; 80307; 81003; 82306; 82570; 82595; 82728; 83516; 83520; 83540; 83550; 83735; 83970; 84100; 84155; 84156; 84165; 84166; 84550; 85025; 85610; 85651; 86038; 86141; 86146; 86147; 86160; 86162; 86200; 86225; 86235; 86255; 86256; 86376; 86431; 86703; 87070; 87077; 87147; 87186; 87205; 87899; 88300; 88304; 88313; 88329; 93308; 93321; 93325; 96374; 96375; 99156; 99157; A9585; J1650; J2250; J2405; J2543; J2930; J3010; G0435; J1940; J2270; J2310; J7512